=== PATIENT | female | born 1980 | race Caucasian/White ===

== ENCOUNTER 2016-12-08 04:28 | Emergency (ER) | payer OTHER ==
[~2016-12-08 04:28] MED LIST changes: -LEXA10TA PO; -MONUPAK PO; -TERC.4%V VAGINAL
[2016-12-08] MEDS ORDERED: MONUPAK PO (05:45)
--- NOTE | 2016-12-08 05:46 | PD ---
HPI Chief Complaint Cramping and spotting Date Seen: Dec 08, 2016 Time Seen: 05:30 Travel History International Travel<30 Days: No Contact w/Intl Traveler<30Days: No Known Affected Area: No History of Present Illness HPI This patient is 36-year-old white female at approximately 27 weeks' gestation with essentially no care only one visit with [facility] who didn't find out she was until a week and a half ago, she presents complaining of some cramping pain for over a month and spotting at times with some vulvar discomfort and swelling, heart rate tracing is reactive and she has no contractions, patient scheduled for an ultrasound on OB diagnostics in about 3 hours of but felt that she just got scared about her pains and the A.M. 4:30 This Morning Weeks Gestation: 27 Para: 1 : 2 History Obstetric History Obstetric History One vaginal delivery Social History Alcohol Use: No Tobacco Use: No Substance Abuse: No Allergies-Medications (Allergen,Severity, Reaction): Coded Allergies: No Known Allergies (Verified , 11/28/16) Home Meds Reported Medications Amphetamine-Dextroamphetamine (Adderall) 30 Mg Tab, 30 MG PO BID for Hyperactivity Control, #60 TAB 0 Refills Avoid late evening doses. Space doses at least 4 to 6 hours if more than once/day dosing. 11/28/16 Buprenorphine (Buprenorphine) 8 Mg Subl, 8 MG SL TID, TAB.SL 11/28/16 Alprazolam (Xanax) 2 Mg Tab, 2 MG PO Q8H Y for ANXIETY, TAB 0 Refills 11/28/16 Review of Systems General / Constitutional: No: Fever, Weight Gain, Chills, Other Eyes: No: Diploplia, Blurred Vision, Visual changes, Pain, Photophobia HENT: No: Headaches, Vertigo, Lightheadedness Cardiovascular: No: Irregular Rhythm, Chest Pain or Discomfort, Palpitations, Tachycardia, Syncope, Varicosities, Edema, Cyanosis Respiratory: No: Cough, Short of Breath, Other Gastrointestinal: Abdominal Pain, No: Nausea, Vomiting, Diarrhea Genitourinary: No: Decreased Urinary Output, Oliguria Musculoskeletal: No: Limited ROM, Weakness, Cramping, Edema, Pain Skin: No Rash, No Itching, No Dryness, No Lumps, No Change in Pigmentation, No Change in Nails, No Alopecia, No Lesions Neurologic: No: Weakness, Dizziness, Syncope, Focal Abnormalities, Coordination Problem, Headache, Slurred Speech, Seizures Psychiatric: No: Depression, Suicidal Ideations, Homicidal Ideation Endocrine: No: Heat Intolerance, Cold Intolerance, Polydipsia, Polyuria, Other Physical Exam Narrative GENERAL: Well-nourished, well-developed patient. SKIN: Warm and dry. HEAD: Normocephalic and atraumatic. EYES: No scleral icterus. No injection or drainage. ENT: No nasal drainage noted. Mucous membranes pink. Airway patent. NECK: Supple, trachea midline. No JVD. CARDIOVASCULAR: Regular rate and rhythm without murmurs, gallops, or rubs. RESPIRATORY: Breath sounds equal bilaterally. No accessory muscle use. BREASTS: Bilateral exam showed no masses , no retractions, no nipple discharge. ABDOMEN/GI: Abdomen soft, non-tender, bowel sounds present, no rebound, no guarding Gravid to [-27] weeks size Fundal Height: [-27] GENITOURINARY: External Genitalia: intact with some vulvar pink irritation likely yeast no blood on exam glove Cervix: [post-] Dilatation: [-0] Effacement: [-thick] Station: [-3] Membranes: [intact ] Uterine Contractions: [-0] FHT's: Category: [1-] Baseline: [-133] Reactive: [yes-] Variability: [-mod] Decels: [-0] EXTREMITIES: No cyanosis or edema. BACK: Nontender without obvious deformity. No CVA tenderness. NEUROLOGICAL: Awake and alert. Motor and sensory grossly within normal limits. Five out of 5 muscle strength in all muscle groups. Normal speech. Data Data Labs Urine dip shows trace leukocytes trace blood otherwise negative MDM Interpretation(s) 36-year-old white female at approximately 27 weeks with essentially no care who is scheduled for an ultrasound today at about 3 hours but presents with cramping and some minimal spotting this been going on for a month or more just at 4 AM discomfort also do come on in and check it out. No mayur blood or leakage of fluid. No contractions seen. Cervix closed long and high. heart rate tracing is reactive. By Manuel maneuvers and exam she's size equal dates approximately 27 weeks centimeters in size and of course the ultrasound being done a few hours will delineate the specifics on growth and an estimated gestational age Plan Plan the of the patient a prescription for monurol one-time dose for UTI, she was instructed to get Monistat one, or Vagistat 1 at [facility] and use that for yeast. She sees Tylenol as needed for discomfort heating pad on lower abdomen or hot bath for comfort bed rest helps as well. She is to increase her fluids for hydration purposes adequate follow-up with her ultrasound and her clinic Diagnosis Diagnosis: Primary Impression: Abdominal pain during in second trimester Additional Impression: UTI (urinary tract infection) in in second trimester Disposition: 01 DISCHARGE HOME Condition: Stable Scripts Fosfomycin Packet (Monurol Packet) 3 Gm Powderpack 3 GM PO ONCE for Urinary Symptom Managemen for 1 Day, GM Prov: Julián Palomo II, MD 12/08/16 Julián Palomo II, MD Dec 08, 2016 05:45
[2016-12-08] MEDS ORDERED: TERC.4%V VAGINAL (12:59)
== END 2016-12-08 06:05 | disposition home or self-care (01) ==
LOC: HOBED 04:28
DX: O23.42 Unspecified infection of urinary tract in pregnancy, second trimester (principal); Z3A.27 27 weeks gestation of pregnancy
CPT/HCPCS: 59025

== ENCOUNTER → 2016-12-08 | Outpatient (CLI) | payer OTHER ==
[~2016-12-08] MED LIST: ADDE30TA PO; BUPR8SUB SL; LEXA10TA PO; MONUPAK PO; TERC.4%V VAGINAL; XANA2TAB2 PO
== END ==
LOC: HPND 08:07
PROVIDERS: ATTEND Obstetrics & Gynecology
DX: O99.322 Drug use complicating pregnancy, second trimester (principal); O09.32 Supervision of pregnancy with insufficient antenatal care, second trimester; O99.282 Endocrine, nutritional and metabolic diseases complicating pregnancy, second trimester
CPT/HCPCS: 76805

== ENCOUNTER 2016-12-10 02:44 | Emergency (ER) | payer OTHER ==
[~2016-12-10 02:44] MED LIST changes: +MONUPAK PO; +TERC.4%V VAGINAL
[2016-12-10] MEDS ORDERED: LEXA10TA PO (03:24)
--- NOTE | 2016-12-10 03:36 | PD ---
HPI Chief Complaint Concern for withdrawal Date Seen: Dec 10, 2016 Time Seen: 03:24 Travel History International Travel<30 Days: No Contact w/Intl Traveler<30Days: No Known Affected Area: No History of Present Illness HPI 36-year-old 2 para 1 at 27-3/7 weeks gestation with an EDC of February 28. She is currently enrolled with care [facility] women and is on Subutex 8 mg 3 times a day and Zantac 2 mg 3 times a day. She states that she is no longer taking her Adderall. She is up-to-date on her Subutex dosing. She has not taken Xanax since morning. She was also trying to dose reduce on Lexapro which was prescribed 20 mg that she had reduced to 5 mg but feels like this is making her anxiety worse at this dose. History Past Medical History Narrative Medical Polysubstance abuse Obstetric History Obstetric History One prior term vaginal delivery -this child has autism Past Surgical History Narrative Surgical None Family History Family History: Negative Social History Alcohol Use: No Tobacco Use: No Substance Abuse: Yes Allergies-Medications (Allergen,Severity, Reaction): Coded Allergies: No Known Allergies (Verified , 11/28/16) Home Meds Active Scripts Terconazole Vaginal Cream (Terazol 7 Vaginal Cream) 0.4 % Cream, 1 APPL VAGINAL HS for Fungal Infection, #45 GM 0 Refills 1 applicatorful intravaginally x 7 nights Prov:Chelsie Oswald 12/08/16 Fosfomycin Packet (Monurol Packet) 3 Gm Powderpack, 3 GM PO ONCE for Urinary Symptom Managemen for 1 Day, GM Prov:Julián Palomo II, MD 12/08/16 Reported Medications Amphetamine-Dextroamphetamine (Adderall) 30 Mg Tab, 30 MG PO BID for Hyperactivity Control, #60 TAB 0 Refills Avoid late evening doses. Space doses at least 4 to 6 hours if more than once/day dosing. 11/28/16 Buprenorphine (Buprenorphine) 8 Mg Subl, 8 MG SL TID, TAB.SL 11/28/16 Alprazolam (Xanax) 2 Mg Tab, 2 MG PO Q8H Y for ANXIETY, TAB 0 Refills 11/28/16 Review of Systems Except as stated in HPI: all other systems reviewed are Neg Physical Exam Narrative GENERAL: Well-nourished, well-developed patient. SKIN: Warm and dry. HEAD: Normocephalic and atraumatic. EYES: No scleral icterus. No injection or drainage. ENT: No nasal drainage noted. Mucous membranes pink. Airway patent. NECK: Supple, trachea midline. No JVD. CARDIOVASCULAR: Regular rate and rhythm without murmurs, gallops, or rubs. RESPIRATORY: Breath sounds equal bilaterally. No accessory muscle use. ABDOMEN/GI: Abdomen soft, non-tender, bowel sounds present, no rebound, no guarding Gravid to [-] weeks size Fundal Height: [-] FHT's: Category: [1-] Baseline: [-] Reactive: [yes-] Variability: [-] Decels: [-] EXTREMITIES: No cyanosis or edema. BACK: Nontender without obvious deformity. No CVA tenderness. NEUROLOGICAL: Awake and alert. Motor and sensory grossly within normal limits. Five out of 5 muscle strength in all muscle groups. Normal speech. Data Data Vital Signs Reviewed: Yes MDM Medical Record Reviewed: Yes Narrative Course / MDM Assessment: 27+ week intrauterine with polysubstance abuse Plan: I discussed with the patient reinitiating her Lexapro at 10 mg. She will follow up in the clinic Monday by phone to reestablish the point that she missed on 4 her 28 week labs. Diagnosis Diagnosis: Primary Impression: 27 weeks gestation of Additional Impression: Medication refill Disposition: 01 DISCHARGE HOME Condition: Good Scripts Escitalopram (Lexapro) 10 Mg Tab 10 MG PO DAILY for Control Depression, #30 TAB 0 Refills Prov: Anthony Parks MD 12/10/16 Anthony Parks MD Dec 10, 2016 03:36
== END 2016-12-10 03:52 | disposition home or self-care (01) ==
LOC: HOBED 02:44
DX: O99.322 Drug use complicating pregnancy, second trimester (principal); F19.10 Other psychoactive substance abuse, uncomplicated; Z3A.27 27 weeks gestation of pregnancy
CPT/HCPCS: 99283

== ENCOUNTER 2017-01-09 01:42 | Emergency (ER) | payer OTHER ==
[~2017-01-09 01:42] MED LIST changes: +CELE40TA PO; +KLON2TAB PO; -MONUPAK PO
[2017-01-09 02:11] VITALS: BP 106/64; PULSE 95; RESP 20; O2SAT 98
--- NOTE | 2017-01-09 02:19 | PD ---
HPI Chief Complaint: Related Problem Time Seen by Provider: 02:01 Travel History International Travel<30 days: No Contact w/Intl Traveler<30days: No Traveled to known affect area: No History of Present Illness HPI 36-year-old female patient with history of previous substance abuse, previous with delivery at 34 weeks, presents to the ER today 33 weeks , states that she has noticed increased wetness in her panty liners and is worried that she may be losing amniotic fluid. She states that she has had this problem in her previous . She was last evaluated by ENGINEERING ADMINISTRATOR last week and had normal heart tones. She states that she also has not felt the baby moving in the past few days. She denies any bleeding, abdominal pains currently, or any other symptoms. Modifying Factors: None Associated Signs & Symptoms: 33 weeks , increased vaginal discharge, possible amniotic fluid Risk Factors: Previous delivery with low amniotic fluid levels PFSH Past Medical History Anxiety: Yes Depression: Yes Diminished Hearing: No Neurologic: Yes (CLOSED HEAD INJURY S/P SEIZURE 5 MO AGO.) Immunizations Current: Yes Seizures: Yes Past Surgical History Section: Yes (X1) Ear Surgery: No Oral Surgery: Yes (wisdom teeth removed) Social History Alcohol Use: No Tobacco Use: No Substance Use: No (denies) Allergies-Medications (Allergen,Severity, Reaction): Coded Allergies: No Known Allergies (Verified Adverse Reaction, Unknown, 12/29/16) Reported Meds & Prescriptions Reported Meds & Active Scripts Active Terazol 7 Vaginal Cream (Terconazole Vaginal Cream) 0.4 % Cream 1 Appl VAGINAL HS 1 applicatorful intravaginally x 7 nights Reported Celexa (Citalopram Hydrobromide) 40 Mg Tab 40 Mg PO DAILY Klonopin (Clonazepam) 2 Mg Tab 2 Mg PO DAILY Adderall (Amphetamine-Dextroamphetamine) 30 Mg Tab 30 Mg PO BID Avoid late evening doses. Space doses at least 4 to 6 hours if more than once/day dosing. Buprenorphine (Buprenorphine HCl) 8 Mg Subl 8 Mg SL TID Xanax (Alprazolam) 2 Mg Tab 2 Mg PO Q8H PRN Review of Systems Except as stated in HPI: all other systems reviewed are Neg Physical Exam Narrative GENERAL: Well-developed middle age female patient currently in mild distress. Awake and oriented 3. SKIN: Focused skin assessment warm/dry. HEAD: Atraumatic. Normocephalic. EYES: Pupils equal and round. No scleral icterus. No injection or drainage. ENT: No nasal bleeding or discharge. Mucous membranes pink and moist. NECK: Trachea midline. No JVD. CARDIOVASCULAR: Regular rate and rhythm. No murmur appreciated. RESPIRATORY: No accessory muscle use. Clear to auscultation. Breath sounds equal bilaterally. GASTROINTESTINAL: Abdomen soft, gravid, uterine fundus above the umbilicus, non- tender, nondistended. Hepatic and splenic margins not palpable. GENITOURINARY: Normal external genitalia without lesions or erythema. Vaginal vault without blood, noted whitish drainage. Cervical os was closed without drainage. No cervical motion tenderness. Uterus nontender and appropriately enlarged. Bilateral adnexa nontender without masses. MUSCULOSKELETAL: No obvious deformities. No clubbing. No cyanosis. No edema. NEUROLOGICAL: Awake and alert. No obvious cranial nerve deficits. Motor grossly within normal limits. Normal speech. PSYCHIATRIC: Appropriate mood and affect; insight and judgment normal. Data Data Orders Orders Urinalysis - C+S If Indicated (01/09/17 02:01) [facility] Medical Decision Making Medical Screen Exam Complete: Yes Emergency Medical Condition: Yes Medical Record Reviewed: Yes Differential Diagnosis 33 weeks , increased discharge: Amniotic fluid leakage versus normal related vaginal discharge Narrative Course Abdomen is benign, and on exam I see whitish discharge, no bleeding, cervical os is closed. Transabdominal ultrasound was done by me which shows positive heart tones. At this point, case was discussed with Dr. Brian in the OB ER, and she states that the patient can come by private vehicle and be evaluated in the OB ER at this time. I have told the patient regarding the discussion with Dr. Brian and have recommended that she goes directly from here to the OB ER at [facility] for further evaluation since I cannot rule out that this is not amniotic fluid. An amniotic fluid leakage that is undetected, can cause further issues with and morbidity. Patient states understanding, and states she will go to the main ER. I have reiterated to her that she should not wait until morning. She states understanding. Diagnosis Primary Impression: Vaginal discharge during in third trimester Additional Instructions: Go directly to the OB ER at [facility] now, Dr. Brian will be expecting you. Disposition: 70 TRANSFER TO OTHER FACILITY (to go directly to OB ER at [facility]) Condition: Stable Goldy Weiss MD Jan 09, 2017 02:19
[2017-01-09 02:22] LABS: GLUCOSE,URINE NEG (NEG); KETONE, URINE NEG (NEG); NITRITE,URINE NEG (NEG); PH, URINE 6.5 (5.0-8.5)
[2017-01-09] MEDS ORDERED: ADDE20 PO (02:28)
[2017-01-09 02:34] LABS: BLOOD, URINE TRACE (NEG)
[2017-01-09 02:35] LABS: URINE COLOR YELLOW (YELLW/STRAW)
[2017-01-09 02:36] LABS: COMMENT (UR) CULT NOT INDICATED; CULTURE IF INDICATED CULT NOT INDICATED; RBC, URINE 0-3 /hpf (0-3); WBC, URINE 0-2 /hpf (0-5)
[2017-01-09 02:40] VITALS: BP 110/68
== END 2017-01-09 02:31 | disposition short-term general hospital (02) ==
LOC: PHED 01:42
DX: O26.93 Pregnancy related conditions, unspecified, third trimester (principal); Z3A.34 34 weeks gestation of pregnancy
CPT/HCPCS: 81001; 99285

== ENCOUNTER 2017-01-09 03:53 | Emergency (ER) | payer OTHER ==
[~2017-01-09 03:53] MED LIST changes: +ADDE20 PO
--- NOTE | 2017-01-09 04:59 | PD ---
HPI Chief Complaint Watery vaginal discharge with decreased movement Date Seen: Jan 09, 2017 Time Seen: 04:53 Travel History International Travel<30 Days: No Contact w/Intl Traveler<30Days: No Known Affected Area: No History of Present Illness HPI 36-year-old who is at 32 weeks 6 days comes in complaining of decreased movement for the past 2-3 hours and she's noticed an increase in watery vaginal discharge and she just won't make sure that she was not ruptured. Patient sees care for women and denies any complications although she has had sparse care with only a single visit thus far. Patient is also on Subutex Xanax Klonopin and Lexapro with a history of section Weeks Gestation: 32 (32.6) Para: 1 : 2 History Past Medical History Medical History: Denies Significant Hx Obstetric History Obstetric History section Past Surgical History Narrative Surgical section and wisdom teeth removal Family History Family History: Negative Social History Alcohol Use: No Tobacco Use: Yes Substance Abuse: No Allergies-Medications (Allergen,Severity, Reaction): Coded Allergies: No Known Allergies (Verified Adverse Reaction, Unknown, 12/29/16) Home Meds Reported Medications Amphetamine-Dextroamphetamine (Adderall) 20 Mg Tab, 20 MG PO DAILY for Hyperactivity Control, #30 TAB 0 Refills Avoid late evening doses. Space doses at least 4 to 6 hours if more than once/day dosing. 01/09/17 Citalopram (Celexa) 40 Mg Tab, 40 MG PO DAILY for Control Depression, #30 TAB 0 Refills 12/29/16 Clonazepam (Klonopin) 2 Mg Tab, 2 MG PO DAILY, #60 TAB 0 Refills 12/29/16 Buprenorphine (Buprenorphine) 8 Mg Subl, 8 MG SL TID, TAB.SL 11/28/16 Discontinued Reported Medications Amphetamine-Dextroamphetamine (Adderall) 30 Mg Tab, 30 MG PO BID for Hyperactivity Control, #60 TAB 0 Refills Avoid late evening doses. Space doses at least 4 to 6 hours if more than once/day dosing. 11/28/16 Alprazolam (Xanax) 2 Mg Tab, 2 MG PO Q8H Y for ANXIETY, TAB 0 Refills 11/28/16 Discontinued Scripts Terconazole Vaginal Cream (Terazol 7 Vaginal Cream) 0.4 % Cream, 1 APPL VAGINAL HS for Fungal Infection, #45 GM 0 Refills 1 applicatorful intravaginally x 7 nights Prov:Chelsie Oswald 12/08/16 Review of Systems Except as stated in HPI: all other systems reviewed are Neg Physical Exam Narrative GENERAL: Well-nourished, well-developed patient. SKIN: Warm and dry. HEAD: Normocephalic and atraumatic. EYES: No scleral icterus. No injection or drainage. ENT: No nasal drainage noted. Mucous membranes pink. Airway patent. NECK: Supple, trachea midline. No JVD. CARDIOVASCULAR: Regular rate and rhythm without murmurs, gallops, or rubs. RESPIRATORY: Breath sounds equal bilaterally. No accessory muscle use. ABDOMEN/GI: Abdomen soft, non-tender, bowel sounds present, no rebound, no guarding Gravid to [30-] weeks size Fundal Height: [-] GENITOURINARY: Amnisure is negative with no obvious amniotic fluid per vagina External Genitalia: intact and normal in appearance BUS glands: [-] Cervix: [-] Dilatation: [-] Effacement: [-] Station: [-] Presentation: [-] Membranes: [intact or ruptured] Uterine Contractions: [-] FHT's: Category: [1-] Baseline: [140-] Reactive: [-Moderate] Variability: [-Moderate] Decels: [-Absent] EXTREMITIES: No cyanosis or edema. BACK: Nontender without obvious deformity. No CVA tenderness. NEUROLOGICAL: Awake and alert. Motor and sensory grossly within normal limits. Five out of 5 muscle strength in all muscle groups. Normal speech. Data Data Vital Signs Reviewed: Yes [facility] Medical Record Reviewed: Yes Plan 36-year-old who is at 32 weeks 6 days with intact amniotic membranes and a negative amnisure Decreased movement seems to have resolved since patient arrived with a category 1 heart rate tracing, no contractions are noted History of a section Multiple medications noted Diagnosis Diagnosis: Primary Impression: 32 weeks gestation of Additional Impressions: Previous section complicating , antepartum condition or complication Decreased movement affecting management of in third trimester Intact amniotic membranes during in third trimester Disposition: 01 DISCHARGE HOME Fior Brian MD Jan 09, 2017 04:59
== END 2017-01-09 11:53 | disposition home or self-care (01) ==
LOC: HOBED 03:53
DX: O36.8130 Decreased fetal movements, third trimester, not applicable or unspecified (principal); Z3A.32 32 weeks gestation of pregnancy; Z79.899 Other long term (current) drug therapy
CPT/HCPCS: 59025; 84112

== ENCOUNTER → 2017-01-11 | Outpatient (CLI) | payer OTHER ==
[~2017-01-11] MED LIST changes: -ADDE30TA PO; -TERC.4%V VAGINAL; -XANA2TAB2 PO
== END ==
LOC: HPND 12:50
PROVIDERS: ATTEND Obstetrics & Gynecology
DX: O09.523 Supervision of elderly multigravida, third trimester (principal); O99.323 Drug use complicating pregnancy, third trimester; O99.333 Smoking (tobacco) complicating pregnancy, third trimester; O36.63X0 Maternal care for excessive fetal growth, third trimester, not applicable or unspecified
CPT/HCPCS: 76811; 76825; 76827; 93325

== ENCOUNTER 2017-02-09 01:35 | Emergency (ER) | payer OTHER ==
[~2017-02-09] VITALS: Ht 162.6 cm; Wt 70.3 kg
[~2017-02-09 01:35] MED LIST changes: +BUPR100CR PO
[2017-02-09] MEDS ORDERED: PREN29TA PO (02:01)
--- NOTE | 2017-02-09 02:21 | PD ---
HPI Chief Complaint Contractions Date Seen: Feb 09, 2017 Time Seen: 02:16 Travel History International Travel<30 Days: No Contact w/Intl Traveler<30Days: No Known Affected Area: No History of Present Illness HPI 36 yo at 35.6 weeks gestation who c/o abdominal pain earlier today but felt like contractions. This is only happened 3 times in the past 2 hours. She was concerned as she ran out of Klonopin and her last dose was yesterday. No other complaints at this time with good movement, denies vaginal bleeding or rupture membranes patient sees care for women and had an appointment this week with another appointment in 5 days. Patient arrived via E VAC Weeks Gestation: 35 (35.6) Para: 1 : 2 History Past Medical History Narrative Medical Anxiety Depression Chronic Subutex use Obstetric History Obstetric History section 7 years ago this child was diagnosis autistic Past Surgical History Narrative Surgical section Family History Family History: Negative Social History Alcohol Use: No Tobacco Use: No Substance Abuse: Yes Allergies-Medications (Allergen,Severity, Reaction): Coded Allergies: No Known Allergies (Verified Adverse Reaction, Unknown, 02/09/17) Home Meds Reported Medications Vit-Iron Carbonyl ( Plus Iron 29-1 mg) 29 Mg Iron-1 Mg Tab, 1 TAB PO DAILY for Nutritional Supplement, #30 TAB 0 Refills 02/09/17 Amphetamine-Dextroamphetamine (Adderall) 20 Mg Tab, 20 MG PO DAILY for Hyperactivity Control, #30 TAB 0 Refills Avoid late evening doses. Space doses at least 4 to 6 hours if more than once/day dosing. 01/09/17 Clonazepam (Klonopin) 2 Mg Tab, 2 MG PO DAILY, #60 TAB 0 Refills 12/29/16 Buprenorphine (Buprenorphine) 8 Mg Subl, 8 MG SL TID, TAB.SL 11/28/16 Discontinued Reported Medications Citalopram (Celexa) 40 Mg Tab, 40 MG PO DAILY for Control Depression, #30 TAB 0 Refills 12/29/16 Discontinued Scripts Bupropion HCl ER 12 HR (Wellbutrin SR 12 HR) 100 Mg Tab, 100 MG PO Q12HR for Control Depression, #60 TAB 1 Refill Prov:Jaswant Navarro MD 01/31/17 Review of Systems Except as stated in HPI: all other systems reviewed are Neg Physical Exam Narrative GENERAL: Well-nourished, well-developed patient. SKIN: Warm and dry. HEAD: Normocephalic and atraumatic. EYES: No scleral icterus. No injection or drainage. ENT: No nasal drainage noted. Mucous membranes pink. Airway patent. NECK: Supple, trachea midline. No JVD. CARDIOVASCULAR: Regular rate and rhythm without murmurs, gallops, or rubs. RESPIRATORY: Breath sounds equal bilaterally. No accessory muscle use. ABDOMEN/GI: Abdomen soft, non-tender, bowel sounds present, no rebound, no guarding Gravid to [36-] weeks size Fundal Height: [-] GENITOURINARY: External Genitalia: intact and normal in appearance BUS glands: [Normal-] Cervix: [-Posterior] Dilatation: [Closed-] Effacement: [-50] Station: [--3] Presentation: [Vertex-] Membranes: [intact] Uterine Contractions: [-Absent, maybe 1 contraction since arrival versus patient movement] FHT's: Category: [1-] Baseline: [-140] Reactive: [-Moderate] Variability: [-Moderate] Decels: [-Absent] EXTREMITIES: No cyanosis or edema. BACK: Nontender without obvious deformity. No CVA tenderness. NEUROLOGICAL: Awake and alert. Motor and sensory grossly within normal limits. Five out of 5 muscle strength in all muscle groups. Normal speech. Data Data Vital Signs Reviewed: Yes [facility] Medical Record Reviewed: Yes Plan 36-year-old previous section here for mild abdominal pain that has mostly resolved but arrived via E V[facility] Patient will discuss with her costume director and the necessity for continued use of Klonopin Chronic Subutex use Advanced maternal age Diagnosis Diagnosis: Primary Impression: 35 weeks gestation of Additional Impressions: Previous section complicating , antepartum condition or complication Advanced maternal age in multigravida complicated by subutex maintenance, antepartum Disposition: DISCHARGE HOME Fior Brian MD Feb 09, 2017 02:21
== END 2017-02-09 02:29 | disposition home or self-care (01) ==
LOC: HOBED 01:35
DX: O09.523 Supervision of elderly multigravida, third trimester (principal); O26.893 Other specified pregnancy related conditions, third trimester; R10.9 Unspecified abdominal pain; O99.343 Other mental disorders complicating pregnancy, third trimester; F41.9 Anxiety disorder, unspecified; F32.9 Major depressive disorder, single episode, unspecified; Z3A.35 35 weeks gestation of pregnancy; Z79.899 Other long term (current) drug therapy
CPT/HCPCS: 59025

== ENCOUNTER 2017-03-02 17:07 | Emergency (ER) | payer OTHER ==
[~2017-03-02 17:07] MED LIST changes: -BUPR100CR PO; -CELE40TA PO; +PREN29TA PO
--- NOTE | 2017-03-02 18:33 | PD ---
HPI Chief Complaint cramps/contractions Date Seen: Mar 02, 2017 Travel History International Travel<30 Days: No Contact w/Intl Traveler<30Days: No History of Present Illness HPI Ms. Pickering is a 36 yo at 38 6/7 weeks (MAYNOR 03/10/2017) who presents with multiple complaints of cramps, contractions, mucus plug, nausea, and dizziness. Ms. Pickering states that last night she began having abdominal cramping/ contractions. Patient also reports having lost her mucus plug at that time and having bloody mucus since (slight). Patient also reports recent nausea and dizziness in association with other symptoms. Patient reports normal movement. Patient does not report mayur vaginal bleeding. No chest pain, shortness of breath, vomiting, abnormal urination, or abnormal bowel movements. On repeat questioning, patient requests to stay overnight due to anxiety regarding a scheduled CS tomorrow (planned at 39 weeks GA as a repeat CS - prior was CS for breech presentation; patient also reports concern about safety/low DAVID and abruption during last ). Patient has had benign course. She last had US 02/28/2016; she is scheduled to get weekly NST's due to polysubstance abuse. Patient reports taking tobacco (<1/2 PPD, Subutex 8mg TID-> 8mg daily, Klonopin 2mg TID and Adderall use during (occasional). Patient used to take regular Adderall and Lexapro earlier in but these were stopped at ~25 weeks when she learned she was . Patient sees Dr. Navarro for care. Weeks Gestation: 38 Para: 1 : 2 History Past Medical History Narrative Medical Advanced maternal age Tobacco abuse multiple substances abused Obstetric History Obstetric History CS for breech presentation; complicated by abruption Past Surgical History Narrative Surgical CS x1 Surgical History: No Previous Surgery Family History Narrative Family History Child with autism Social History Narrative Social History patient smokes <1/2 PPD Patient uses Subutex, Klonopin, Lexapro, Adderall Alcohol Use: No Tobacco Use: Yes Substance Abuse: Yes Allergies-Medications (Allergen,Severity, Reaction): Coded Allergies: No Known Allergies (Verified Adverse Reaction, Unknown, 02/16/17) Home Meds Reported Medications Vit-Iron Carbonyl ( Plus Iron 29-1 mg) 29 Mg Iron-1 Mg Tab, 1 TAB PO DAILY for Nutritional Supplement, #30 TAB 0 Refills 02/09/17 Amphetamine-Dextroamphetamine (Adderall) 20 Mg Tab, 20 MG PO DAILY for Hyperactivity Control, #30 TAB 0 Refills Avoid late evening doses. Space doses at least 4 to 6 hours if more than once/day dosing. 01/09/17 Clonazepam (Klonopin) 2 Mg Tab, 2 MG PO DAILY, #60 TAB 0 Refills 12/29/16 Buprenorphine (Buprenorphine) 8 Mg Subl, 8 MG SL TID, TAB.SL 11/28/16 Review of Systems General / Constitutional: No: Fever, Chills Eyes: No: Blurred Vision HENT: No: Headaches Cardiovascular: No: Chest Pain or Discomfort Respiratory: No: Short of Breath Gastrointestinal: Abdominal Pain, No: Nausea, Vomiting Genitourinary: No: Urgency, Dysuria Skin: No Rash, No Itching Neurologic: No: Weakness Psychiatric: No: Anxiety, Depression Physical Exam VS- T 98.7F BP 122/74 HR 107 RR 18 Narrative GENERAL: Well-nourished, well-developed patient. SKIN: Warm and dry. HEAD: Normocephalic and atraumatic. EYES: No scleral icterus. No injection or drainage. CARDIOVASCULAR: Regular rate and rhythm without murmurs. Normal perfusion RESPIRATORY: CTAB; normal rate ABDOMEN/GI: Abdomen soft, non-tender, bowel sounds present, no rebound, no guarding Gravid EXTREMITIES: No cyanosis or edema. NEUROLOGICAL: Awake and alert. Motor and sensory function grossly within normal limits. GENITOURINARY: External Genitalia: intact and normal in appearance Cervix: Dilatation: 0-1 cm Effacement: 70% Station: -2 Presentation: Vertex Membranes: Intact Uterine Contractions: mild, irregular FHT's: Category: 1 Baseline: 120 Reactive: Y Variability: Moderate Decels: None Data Data Orders Orders Meperidine Inj (Demerol Inj) (03/02/17 18:15) Promethazine Inj (Phenergan Inj) (03/02/17 18:15) MDM Medical Record Reviewed: Yes Narrative Course / MDM 36 yo at 38 6/7 weeks (MAYNOR 03/10/2017) who presents with multiple complaints of cramps, contractions, mucus plug, nausea, and dizziness. -Cat 1 rhythm -Cervix 0-1/70%/-2 -Uterine irritability on CTG -Maternal anxiety -Planned CS tomorrow at 39 weeks GA Assessment/Plan: Suspect that patient is having early labor pains/uterine irritability which is contributing to her chronic anxiety. Patient reassured regarding her fetus' well -being and that she was not in active labor. Patient given Demerol and Phenergan for pain control and discharged home in the company of her friend with instruction and prepare for scheduled repeat - CS tomorrow. Patient will return to OB ED with additional concerns or worsening pain; she was counselled regarding labor and returning to OB ED if needed due to new symptoms or worsening pain. Diagnosis Diagnosis: Primary Impression: Labor, false (Blaine-Trimble), antepartum Additional Impression: 38 weeks gestation of Disposition: 01 DISCHARGE HOME Condition: Stable Patient Instructions: Abdominal Pain in (ED), Movement (ED), General Instructions, Having Your Baby: The Labor Process (GEN) Uvaldo Garza MD, R3 Mar 02, 2017 18:33
[2017-03-02] MEDS ORDERED: MEPERIDINE HCL 50 MG/ML VIAL IM ONE (18:45)
[2017-03-02] MEDS ORDERED: PROMETHAZINE INJ 25 MG/ML VIAL IM ONE (18:45)
== END 2017-03-02 19:19 | disposition home or self-care (01) ==
LOC: HOBED 17:07
DX: O47.1 False labor at or after 37 completed weeks of gestation (principal); O99.333 Smoking (tobacco) complicating pregnancy, third trimester; F17.210 Nicotine dependence, cigarettes, uncomplicated; O99.323 Drug use complicating pregnancy, third trimester; Z3A.38 38 weeks gestation of pregnancy; Z79.899 Other long term (current) drug therapy
CPT/HCPCS: 59025; 96372; J2175; J2550

== ENCOUNTER 2017-03-03 10:24 | Inpatient (IN) | payer OTHER ==
[~2017-03-03] VITALS: Ht 162.6 cm; Wt 73.0 kg
--- NOTE | 2017-03-03 11:15 | HHI.HP ---
HPI Chief Complaint Repeat CS Date Seen: Mar 03, 2017 Travel History International Travel<30 Days: No Contact w/Intl Traveler<30Days: No History of Present Illness HPI Ms. Pickering is a 36 yo at 39 weeks (MAYNOR 03/10/2017) who presents for planned repeat CS. Patient was last seen by myself and Dr. Palomo 03/02 for complaints of abdominal pain concerning for contractions and recent loss of mucus plug; she was having irregular contractions and her cervix was 0-1cm; Cat 1 tracing on EFM. Patient was sent home after Demerol given. Ms. Pickering reports that she is doing ok at this time; she reports some anxiety regarding her upcoming CS. Patient reports increasing abdominal pain overnight; she continues to feel this every few minutes. Patient reports continued bloody mucus since loss of mucus plug several days prior. Normal movement. Patient does not report mayur vaginal bleeding. Patient reports some pain with urination. Patient does not report chest pain, shortness of breath, nausea/ vomiting, or abnormal bowel movements. Patient reports history with multiple substances: tobacco (<1/2 PPD, Subutex 8mg TID-> 8mg daily, Klonopin 2mg TID and Adderall use during (occasional). Patient last had US 02/28/2016; she is scheduled to get weekly NST' s due to polysubstance abuse. Patient has not yet obtained labs; CBC wnl. Patient requests anxiety control and subsequent Psychiatry evaluation after delivery due to mood disorder. Patient reports distant history of opiate dependence but that she is agreeable to taking opiate medications post- operatively with plan to transition back to Subutex; patient gets Subutex from physician in [place] (Dr. Gray). Weeks Gestation: 39 Para: 1 : 2 History Past Medical History Narrative Medical Advanced maternal age Tobacco abuse on subutex Anxiety/depression Obstetric History Obstetric History Prior CS for breech presentation; patient also reports concern about safety/low DAVID and abruption during last Past Surgical History Narrative Surgical CS x1 [place] teeth removal Family History Narrative Family History T2DM Unspecified cancer Son with autism Social History Narrative Social History <1/2 PPD tobacco Subutex Klonopin occasional Adderall Lexapro in early Alcohol Use: No Substance Abuse: No Allergies-Medications (Allergen,Severity, Reaction): Coded Allergies: No Known Allergies (Verified Adverse Reaction, Unknown, 03/03/17) Home Meds Reported Medications Vit-Iron Carbonyl ( Plus Iron 29-1 mg) 29 Mg Iron-1 Mg Tab, 1 TAB PO DAILY for Nutritional Supplement, #30 TAB 0 Refills 02/09/17 Amphetamine-Dextroamphetamine (Adderall) 20 Mg Tab, 20 MG PO DAILY for Hyperactivity Control, #30 TAB 0 Refills Avoid late evening doses. Space doses at least 4 to 6 hours if more than once/day dosing. 01/09/17 Clonazepam (Klonopin) 2 Mg Tab, 2 MG PO DAILY, #60 TAB 0 Refills 12/29/16 Buprenorphine (Buprenorphine) 8 Mg Subl, 8 MG SL TID, TAB.SL 11/28/16 Review of Systems General / Constitutional: No: Fever Eyes: No: Blurred Vision HENT: No: Headaches Cardiovascular: No: Chest Pain or Discomfort Respiratory: No: Short of Breath Gastrointestinal: Abdominal Pain, No: Nausea, Vomiting Genitourinary: Dysuria (occasional), No: Urgency, Frequency Skin: No Rash Neurologic: No: Weakness Psychiatric: No: Anxiety, Depression Physical Exam BP 127/76 HR 95 RR 18 Narrative GENERAL: Well-nourished, well-developed patient. SKIN: Warm and dry. HEAD: Normocephalic and atraumatic. EYES: No scleral icterus. No injection or drainage. NECK: No thyromegaly or lymphadenopathy CARDIOVASCULAR: Regular rate and rhythm without murmurs. Normal perfusion RESPIRATORY: CTAB; normal rate ABDOMEN/GI: Abdomen soft, non-tender, bowel sounds present, no rebound, no guarding. Gravid EXTREMITIES: No cyanosis or edema. NEUROLOGICAL: Awake and alert. Motor and sensory function grossly within normal limits. FHT's: Category: 1 Baseline: 130 Reactive: Y Variability: Moderate Decels: None GENITOURINARY: Per last check 03/02, cervix 0-1cm dilated Presentation: Vertex Membranes: Intact Uterine Contractions: occasional, ~>5 min intervals between Caprini VTE Risk Assessment Caprini VTE Risk Assessment: No/Low Risk (score <= 1) Caprini Risk Assessment Model Point Value = 1 Point Value = 2 Point Value = 3 Point Value = 5 Age 41-60 Minor surgery BMI > 25 kg/m2 Swollen legs Varicose veins or History of unexplained or recurrent spontaneous Oral contraceptives or hormone replacement Sepsis (< 1 month) Serious lung disease, including pneumonia (< 1 month) Abnormal pulmonary function Acute myocardial infarction Congestive heart failure (< 1 month) History of inflammatory bowel disease Medical patient at bed rest Age 61-74 Arthroscopic surgery Major open surgery (> 45 min) Laparoscopic surgery (> 45 min) Malignancy Confined to bed (> 72 hours) Immobilizing plaster cast Central venous access Age >= 75 History of VTE Family history of VTE Factor V Leiden Prothrombin [id number] Lupus anticoagulant Anticardiolipin antibodies Elevated serum homocysteine Heparin-induced thrombocytopenia Other congenital or acquired thrombophilia Stroke (< 1 month) Elective arthroplasty Hip, pelvis, or leg fracture Acute spinal cord injury (< 1 month) Prophylaxis Regimen Total Risk Factor Score Risk Level Prophylaxis Regimen 0-1 Low Early ambulation 2 Moderate Order ONE of the following: *Sequential Compression Device (SCD) *Heparin 5000 units SQ BID 3-4 Higher Order ONE of the following medications: *Heparin 5000 units SQ TID *Enoxaparin/Lovenox 40 mg SQ daily (WT < 150 kg, CrCl > 30 mL/min) *Enoxaparin/Lovenox 30 mg SQ daily (WT < 150 kg, CrCl > 10-29 mL/min) *Enoxaparin/Lovenox 30 mg SQ BID (WT < 150 kg, CrCl > 30 mL/min) AND/OR *Sequential Compression Device (SCD) 5 or more Highest Order ONE of the following medications: *Heparin 5000 units SQ TID (Preferred with Epidurals) *Enoxaparin/Lovenox 40 mg SQ daily (WT < 150 kg, CrCl > 30 mL/min) *Enoxaparin/Lovenox 30 mg SQ daily (WT < 150 kg, CrCl > 10-29 mL/min) *Enoxaparin/Lovenox 30 mg SQ BID (WT < 150 kg, CrCl > 30 mL/min) AND *Sequential Compression Device (SCD) Data Data Vital Signs Reviewed: Yes Assessment/Plan Problem List: (1) 39 weeks gestation of ICD Codes: Z3A.39 - 39 weeks gestation of (2) Previous section ICD Codes: Z98.891 - History of uterine scar from previous surgery Assessment and Plan 36 yo at 39 weeks (MAYNOR 03/10/2017) who presents for repeat CS -Cat 1 rhythm -Occasional contractions on CTG -Maternal anxiety on Klonopin -Maternal Subutex usage (8mg daily recently) -Maternal tobacco abuse -No labs Plan: -Will draw remainder of panel -Will obtain Type/screen, CBC, UA -Will plan for repeat CS -Discussed anxiety management and pain control -Will plan for PRN anxiolytic and Psychiatry consultation to manage depression/anxiety medications Uvaldo Garza MD, R3 Mar 03, 2017 11:15
[2017-03-03] MEDS ORDERED: LACTATED RINGER'S 1000 ML INJ 1,000 ML IV ONE ×2 (11:24→12:00)
[2017-03-03] MEDS ORDERED: ACETAMINOPHEN 1000 MG/100 ML 100 ML IV ONE (11:38)
[2017-03-03] MEDS ORDERED: MORPHINE SULFATE PF 5 MG/10 ML VIAL ONE (11:38)
[2017-03-03] MEDS ORDERED: LACTATED RINGER'S 1000 ML INJ 1,000 ML IV SCH ×2 (11:54→21:40)
[2017-03-03 11:55] LABS: BACTERIA, URINE RARE /hpf; BILIRUBIN, URINE NEG (NEG); BLOOD, URINE NEG (NEG); GLUCOSE,URINE NEG (NEG); KETONE, URINE NEG (NEG); NITRITE,URINE NEG (NEG); SQUAMOUS EPITHELIAL CELL URINE 2 /hpf (0-5); TRANSITIONAL EPI CELLS, URINE <1 /hpf; URINE COLOR YELLOW (YELLW/STRAW); URINE LEUKOCYTE ESTERASE NEG (NEG)
[2017-03-03] MEDS ORDERED: LIDOCAINE HCL 1% PF 5 ML SYRINGE OTHER ONE (12:00)
[2017-03-03] MEDS ORDERED: ONDANSETRON HCL 4 MG/2 ML VIAL IV ONE (12:00)
[2017-03-03] MEDS ORDERED: OXYTOCIN 10 UNIT/ML AMP IV ONE (12:00)
[2017-03-03 12:12] LABS: AUTOMATED NEUTROPHIL # 8.3 TH/MM3 (1.8-7.7); BASOPHIL # 0.1 TH/MM3 (0-0.2); BASOPHIL % 0.6 % (0.0-2.0); EOSINOPHIL # 0.3 TH/MM3 (0-0.4); EOSINOPHIL % 2.4 % (0.0-4.0); HEMATOCRIT 34.3 % (35.0-46.0); HEMOGLOBIN 11.7 GM/DL (11.6-15.3); LYMPH % 22.8 % (9.0-44.0); LYMPHOCYTE # 2.7 TH/MM3 (1.0-4.8); MEAN CELL VOLUME 92.8 FL (80.0-100.0); MEAN CORPUSCULAR HEMOGLOBIN 31.7 PG (27.0-34.0); MEAN CORPUSCULAR HGB CONC 34.1 % (32.0-36.0); MEAN PLATELET VOLUME 7.5 FL (7.0-11.0); MONO % 4.7 % (0.0-8.0); MONOCYTE # 0.6 TH/MM3 (0-0.9); NEUT % 69.5 % (16.0-70.0); PLATELET COUNT 267 TH/MM3 (150-450); RED CELL DISTRIBUTION WIDTH 13.6 % (11.6-17.2); WHITE BLOOD COUNT 11.9 TH/MM3 (4.0-11.0)
[2017-03-03] MEDS ORDERED: ceFAZolin 2 GM PREMIX 50 ML IV SCH (12:30)
[2017-03-03 12:43] LABS: BICARBONATE 24.8 MEQ/L (21.0-32.0); CALCIUM 8.9 MG/DL (8.5-10.1); CREATININE 0.59 MG/DL (0.50-1.00)
[2017-03-03] MEDS ORDERED: CITRIC ACID-SODIUM CITRATE LIQ 30 ML UDC PO SCH (13:00)
[2017-03-03] MEDS ORDERED: MIDAZOLAM HCL 2 MG/2 ML VIAL ONE (15:05)
[2017-03-03] MEDS ORDERED: BUPIVACAINE LIPOSOME PF 1.3% 20 ML VIAL ONE (15:22)
[2017-03-03] MEDS ORDERED: DOCUSATE SODIUM 50 MG/SENNA 8.6 MG TAB PO PRN (16:45)
[2017-03-03] MEDS ORDERED: SIMETHICONE 80 MG CHEWABLE TAB PO PRN (16:45)
[2017-03-03] MEDS ORDERED: ONDANSETRON HCL 4 MG/2 ML VIAL IV PUSH PRN (16:45)
[2017-03-03] MEDS ORDERED: SODIUM CHLORIDE 0.9% FLUSH 10 ML FLUSH IV FLUSH PRN (16:45)
[2017-03-03] MEDS ORDERED: oxyCODONE/ACETAMINOPHEN 5 MG/325 MG TAB PO PRN (16:45)
[2017-03-03] MEDS ORDERED: ZOLPIDEM TARTRATE 5 MG TAB PO PRN (16:45)
[2017-03-03] MEDS ORDERED: ACETAMINOPHEN 325 MG TAB PO PRN (16:45)
[2017-03-03] MEDS ORDERED: OXYTOCIN 30 UNITS-500ML PREMIX 500 ML IV ONE (16:45)
--- NOTE | 2017-03-03 17:05 | PD.OB.DELI ---
Procedure Note Section Procedure Pre Op Diagnosis: (1) 39 weeks gestation of (2) Previous section Post Op Diagnosis: (1) 39 weeks gestation of (2) Previous section Performed by Surgeon: Chandler Hernandez MD NATIONAL BUSINESS DIRECTOR: ZACK BLOUNT MD Procedure: Repeat Low Transverse Sec Indication for delivery: Desired elective repeat Previous condition: None Informed consent obtained: For anesthesia, For procedure Confirmed correct: Patient, Procedure, Time-out taken Anesthesia: Spinal Medication prior to procedure: As documented in eMAR Monitoring during procedure: Blood pressure monitoring, color television console monitor, Pulse oximetry Urinary catheter: Inserted using sterile technique Sterile preparation: With 2% chlorexidine (Hibiclens) Position: Supine with wedge to left side Operative Features Skin Incision: Transverse, Pfannenstiel Uterine Incision: Low transverse w/knife / blunt ext Membranes Ruptured: Artificially, Amount of liquid (copious), Appearance of fluid (clear) Presentation: Occiput anterior Delivery date: Mar 03, 2017 Delivery time: 14:42 Delivery of : Assisted Infant: Female One Minute : 8 Five Minute : 8 Weight: 3360g Status of infant: Viable, Umbilical cord Placenta delivered: Intact Medications: Oxytocin Estimated blood loss: 600cc Procedure tolerated: Well Maternal Condition: Stable Condition: Stable Procedure in detail Patient was brought into OR and positioned for spinal anesthesia. This was induced without any difficulty and patient was placed in dorsal lithotomy with a slight leftward tilt. She was cleansed and draped in standard sterile fashion and Cisneros inserted under sterile technique. Time out confirmed procedure, patient identity and prophylactic antitiotics. After confirming adequacy of anesthesia, incision was made with scalpel through her previous pfanensteil scar. Incision was taken through subcutaneous layer using Bovie down to level of rectus fascia which was scored in midline and extended bilaterally with curved Zaidi scissors. Rectus fascia was then elevated between Shira clamps and dissected off from the underlying rectus muscles. Rectus muscles were in midline and peritoneal incision identified. This was tented upwards with hemostats, entered sharply with [place],extended superiorly and inferiorly with careful visualization of the bladder Inspection of abdominal contents was then done and findings as above noted. Bladder blade was then inserted and vesico-uterine peritoneal reflection noted, tented with pickups entered sharply and extended laterally bluntly and bladder flap developed digitally. Fresh scalpel was then used to make an incision over the lower uterine segment, and amniotomy was done with copious clear fluid. Infant was delivered from the right occipito anterior position without nuchal cord and shoulders delivered without any difficulty. Delayed cord clamping was done and placenta /membranes then delivered spontaneously complete. Uterus was then exteriorized and placenta and membranes cleansed of all clots and debris. We then proceeded to close uterus in 3 layers , first of 0 Vicryl in continuous locking fashion for hemostasis and the second of the same suture to imbricate the first. After confirmed adequacy of hemostasis, the vesicouterine layer was reapproximated using 2.0 Vicryl. Gutters were cleared of all clots and debris and uterus returned to its intraperitoneal location. Interceed adhesion barrier was then placed over the incision, and then parietal peritoneum reapproximated with 2.0 Vicryl. The same suture was then used to reapproximate the edges of the rectus muscles in the midline. Rectus fascia was then closed with 1PDS after which subcutaneous tissues were irrigated with warm saline, and space closed with continuous 2.0 Vicryl. Finally skin closed in subcuticular fashion using 3.0 Monocryl. Pressure dressing was then applied. Patient tolerated procedure well and transferred stable to recovery. Chandler Hernandez MD Mar 03, 2017 17:05
[2017-03-03] MEDS: KETOROLAC TROMETHAMINE 60 MG/2 ML (IM) VIAL IM PRN (17:16)
[2017-03-03] MEDS ORDERED: MORPHINE SULFATE 4 MG/ML INJ ONE (18:10)
[2017-03-03 18:30] VITALS: BP 109/77; PULSE 83; RESP 15; TEMP 97.6
[2017-03-03] MEDS ORDERED: MORPHINE SULFATE 2 MG/ML INJ IV PUSH ONE (18:30)
[2017-03-03 19:50] VITALS: BP 124/78; PULSE 20; PULSE 87; RESP 20; TEMP 97.9; O2SAT 99
[2017-03-03] MEDS: oxyCODONE/ACETAMINOPHEN 5 MG/325 MG TAB PO PRN ×2 (19:51→23:01)
[2017-03-03] MEDS ORDERED: SODIUM CHLORIDE 0.9% FLUSH 10 ML FLUSH IV FLUSH SCH (21:00)
[2017-03-04] VITALS (8 sets, daily range): BP systolic 115–121; BP diastolic 72–82; PULSE 79–102; RESP 11–18; TEMP 97.6–98.1; O2SAT 99
[2017-03-04] MEDS: KETOROLAC TROMETHAMINE 60 MG/2 ML (IM) VIAL IM PRN ×2 (00:26→05:41)
[2017-03-04] MEDS ORDERED: OXYTOCIN 30 UNITS-500ML PREMIX 500 ML IV PRN (02:45)
[2017-03-04] MEDS: oxyCODONE/ACETAMINOPHEN 5 MG/325 MG TAB PO PRN ×3 (03:06→12:47)
[2017-03-04 05:58] LABS: AUTOMATED NEUTROPHIL # 9.3 TH/MM3 (1.8-7.7); BASOPHIL # 0.1 TH/MM3 (0-0.2); BASOPHIL % 0.5 % (0.0-2.0); EOSINOPHIL # 0.2 TH/MM3 (0-0.4); EOSINOPHIL % 1.1 % (0.0-4.0); HEMATOCRIT 33.9 % (35.0-46.0); HEMOGLOBIN 11.5 GM/DL (11.6-15.3); LYMPH % 23.8 % (9.0-44.0); LYMPHOCYTE # 3.1 TH/MM3 (1.0-4.8); MEAN CELL VOLUME 92.8 FL (80.0-100.0); MEAN CORPUSCULAR HEMOGLOBIN 31.5 PG (27.0-34.0); MEAN PLATELET VOLUME 7.2 FL (7.0-11.0); MONO % 3.5 % (0.0-8.0); MONOCYTE # 0.5 TH/MM3 (0-0.9); NEUT % 71.1 % (16.0-70.0); PLATELET COUNT 252 TH/MM3 (150-450); RED BLOOD COUNT 3.65 MIL/MM3 (4.00-5.30); RED CELL DISTRIBUTION WIDTH 13.9 % (11.6-17.2); WHITE BLOOD COUNT 13.1 TH/MM3 (4.0-11.0)
[2017-03-04] MEDS: clonazePAM 1 MG TAB PO PRN ×2 (08:09→20:39)
[2017-03-04] MEDS ORDERED: IBUPROFEN 800 MG TAB PO PRN (08:15)
[2017-03-04] MEDS ORDERED: KETOROLAC TROMETHAMINE 30 MG/ML (IVP) VIAL IV PUSH SCH (08:30)
--- NOTE | 2017-03-04 09:05 | HHI.OB ---
Subjective Post Operative Day: 1 Remarks Pt seen and examined this morning. Postoperative day # 1 AFVSS overnight. Incision not draining with compressive bandage in place, CDI. Patient endorses incisional pain. Decreased lochia. Denies dysuria. No breast tenderness. Baby will be placed for adoption. Appetite good. No nausea or vomiting. Patient has not yet had a bowel movement or endorse bowel gas. Ambulating well. Denies calf pain or shortness of breath. Otherwise, she is doing well this morning and has no other concerns. Objective Vitals/I&O Vital Signs Date Time Temp Pulse Resp B/P (MAP) Pulse Ox O2 Delivery O2 Flow Rate FiO2 03/04/17 08:00 97.6 79 15 116/75 (89) 03/04/17 00:20 97.8 84 17 115/77 (90) 99 03/03/17 19:50 87 03/03/17 19:50 97.9 03/03/17 19:50 20 20 124/78 (93) 99 03/03/17 18:30 97.6 83 15 109/77 (88) Result Diagram: 03/04/17 0541 03/03/17 1150 Objective Remarks GENERAL: Well-nourished, well-developed patient. CARDIOVASCULAR: Regular rate and rhythm without murmurs, gallops, or rubs. RESPIRATORY: Breath sounds equal bilaterally. No accessory muscle use. ABDOMEN/GI: Abdomen soft, non-tender, bowel sounds present. Incision: Clean, dry and intact. Compressive bandage in place, CDI. Fundus: Firm, non-tender at umbilicus. GENITOURINARY: Light to moderate bleeding. EXTREMITIES: No cyanosis or edema, non-tender, without signs of DVT. Medications and IVs Current Medications Medications (Trade) Dose Ordered Sig/Radha Route Start Time Stop Time Status Last Admin Lactated Ringer's 1,000 ml @ 150 mls/hr Q6H40M IV 03/03/17 11:54 Cefazolin Sodium/ Dextrose 50 ml @ 100 mls/hr PAYABLE MANAGER IV 03/03/17 12:30 03/07/17 12:29 03/03/17 13:36 (Bicitra Liq) 30 ml PAYABLE MANAGER PO 03/03/17 13:00 03/07/17 12:59 03/03/17 13:37 Lactated Ringer's 1,000 ml @ 100 mls/hr Q10H IV 03/03/17 21:40 03/04/17 17:39 03/04/17 00:26 Oxytocin 500 ml @ 100 mls/hr UNSCH X1 PRN IV 03/04/17 02:45 03/05/17 02:44 (NS Flush) 2 ml BID IV FLUSH 03/03/17 21:00 (NS Flush) 2 ml UNSCH PRN IV FLUSH 03/03/17 16:45 (Mylicon Chew) 80 mg QID PRN PO 03/03/17 16:45 (Tylenol) 650 mg Q6H PRN PO 03/03/17 16:45 (Percocet 5-325 Mg) 1 tab Q4H PRN PO 03/03/17 16:45 (Percocet 5-325 Mg) 2 tab Q4H PRN PO 03/03/17 16:45 03/04/17 07:21 (Charlene-Colace) 2 tab Q12H PRN PO 03/03/17 16:45 (Ambien) 5 mg HS PRN PO 03/03/17 16:45 (M-M-R Ii Inj) 0.5 ml ONCE ONCE SQ 03/04/17 16:00 03/04/17 16:01 (Boostrix Inj) 0.5 ml ONCE ONCE IM 03/04/17 16:00 03/04/17 16:01 (Zofran Inj) 4 mg Q6H PRN IV PUSH 03/03/17 16:45 (KlonoPIN) 2 mg TID PRN PO 03/04/17 09:00 03/04/17 08:09 (Habitrol 14 Mg Patch.24 Hr) 1 patch DAILY T-DERMAL 03/04/17 09:00 Miscellaneous Information 1 HS T-DERMAL 03/04/17 21:00 (Motrin) 800 mg Q8H PRN PO 03/04/17 08:15 (Buprenorphine) 8 mg TID SL 03/04/17 08:30 (Toradol Inj) 30 mg Q6HR IV PUSH 03/04/17 08:30 03/05/17 08:29 Assessment/Plan Problem List: (1) 39 weeks gestation of ICD Codes: Z3A.39 - 39 weeks gestation of (2) Previous section ICD Codes: Z98.891 - History of uterine scar from previous surgery (3) Status post repeat low transverse section ICD Codes: Z98.891 - History of uterine scar from previous surgery Assessment and Plan 36 y/o female who is postoperative # 1 s/p repeat . 1. PPD #1 from Repeat -Continue routine care. -Encouraged OOB. Advised pelvic rest for 6 wks. will need follow-up appointment in 1-2 weeks for incision check. -Re: ctrl, she would like contemplate her options. -Anticipate discharge 1-2 days pending clinical course. 2. Pain control -Patient on Suboxone 8 mg 3 times a day antepartum, continued. -Percocet and Motrin PRN pain. Encouraged stool softener to assist with BMs. -Toradol scheduled every 6 hours for the next 24 hours to assist with pain control. -Patient received nerve block to assist with pain. 3. Anxiety/Depression -Psychiatry consult placed per patient as she would like to discuss her depression and anxiety. dw Dr. Mary MD Discharge Planning In 1-2 days pending clinical course Mikie Feliz MD R2 Mar 04, 2017 09:04
[2017-03-04] MEDS: BUPRENORPHINE HCL 8 MG SUBLINGUAL TAB SL SCH ×4 (09:40→18:09)
[2017-03-04] MEDS: KETOROLAC TROMETHAMINE 30 MG/ML (IVP) VIAL IV PUSH SCH ×3 (09:45→22:32)
[2017-03-04] MEDS: NICOTINE 14 MG/24 HR PATCH T-DERMAL SCH (09:48)
[2017-03-04] MEDS ORDERED: MEASLES, MUMPS, RUBELLA VACCINE 0.5 ML VIAL SQ ONE (16:00)
[2017-03-04] MEDS ORDERED: DIPHTH/TETANUS/ACEL PERTUSSIS (BOOSTER) 0.5 ML VIAL/PFS IM ONE (16:00)
[2017-03-04] MEDS: HYDROcodone/IBUPROFEN 7.5MG/200MG TAB PO PRN ×2 (17:25→22:30)
[2017-03-04 17:29] LABS: HEPATITIS A AB IGM NEGATIVE (NEGATIVE); HEPATITIS B CORE AB IGM NEGATIVE (NEGATIVE); HEPATITIS B SURFACE ANTIGEN NEGATIVE (NEGATIVE); HEPATITIS C AB IgG NEGATIVE (NEGATIVE)
--- NOTE | 2017-03-04 17:36 | PD.PSY.CON ---
Provisional Diagnosis Admission Date Mar 03, 2017 at 10:24 [place]. Psychological and behavioral factors associated with disorders or diseases classified elsewhere.; opiate use disorder in buprenorphine maintenence History of Present Illness Service Psychiatry Consult Requested By Mikie Feliz MD Reason for Consult Pt. requesting consult. Primary Care Physician No Primary Care Physician HPI Patient is a 36-year-old woman, single, has one 7-year-old son who is living with her parents, one son, unemployed, on food stamps, the past psychiatric history of bipolar disorder as per patient, opiate use disorder on buprenorphine maintenance, remote history of ecstasy and cocaine use, 3 prior psychiatric hospitalizations (last time 10 years ago), once previous suicide attempt via overdose 10 years ago, no history of self-injurious behavior, currently with no outpatient mental health provider who recently gave to a child via which baby is going for adoption and psychiatry was consulted for evaluation is requested by the patient. Local Coordinator was notified by nursing staff the patient was on his leave AGAINST MEDICAL ADVICE complaining of not receiving adequate pain management. Patient was found lying in hospital bed speaking with adoption agency associate financial representative, was calm and cooperative interview today. Patient states that she is feeling "good" but reports feeling uncomfortable due to being in pain mostly. Patient reports having had decreased sleep recently due to the , mood has been "up and down" but denies feeling depressed, denies any suicidal ideations, reports adequate appetite but decreased energy and concentration, no feelings of guilt. Patient mentioned she was piercing on Lexapro 20 mg by mouth daily had been taking Lamictal 150 mg as needed which she felt that she was having manic like symptoms but was not taking it consistently. Patient mentioned that after her last delivery with her firstborn child she mentions having had some hypomanic like symptoms at that time was treated on mood stabilizers which resolved but was not ever hospitalized. Patient mentions she's had episodes of depression in the past which have resulted hospitalization 10 years ago but denies any episodes of crispin. Patient denies any previous psychotic symptoms in the past but has been on antipsychotics for mood stabilization. Currently patient reports feeling good, denies feeling depressed with suicide ideations, no manic or psychotic symptoms elicited, no perceptual disturbances or delusional material elicited. Patient at this time has no clinical signs of hypomania or crispin no concern for severe depression at this time. Patient mentions that she is giving up her baby for adoption is in a positive so which will be finalized tomorrow prior to her discharge. Patient states that she is giving of the baby for adoption because she feels is the right thing to do. She mentions that she has support by her boyfriend as well as her family back in [place]. Patient states that she plans on moving back to [place] after discharge with her boyfriend but is amenable to referral to outpatient psychiatry clinic for follow -up post discharge from the hospital. Patient mentioned she has a PCP in [place] as well. Patient at this time denies any SI, HI, AVH or delusions. Family history: Aunt with depression, bipolar. No suicides in a family Past psychiatric history: Previous psychiatric diagnoses of bipolar disorder, 3 previous psychiatric hospitalizations last time being 10 years ago, 1 remote suicide attempt 10 years ago via overdose, no history of self adjust behavior, no history of abuse. Substance use history: Patient reports tobacco use, denies any alcohol use, reports remote history of ecstasy and cocaine use in her 20s, history of opioid prescription abuse has been on Subutex for the past 8 years. Past medical history: Denies Allergies: NKDA Social history: Single, 2 children (7-year-old and a ), unemployed, domiciled with boyfriend, on food stamps, no legal history. Past Family Social History Coded Allergies: No Known Allergies (Verified Adverse Reaction, Unknown, 03/03/17) Reported Medications Vit-Iron Carbonyl ( Plus Iron 29-1 mg) 29 Mg Iron-1 Mg Tab, 1 TAB PO DAILY for Nutritional Supplement, #30 TAB 0 Refills 02/09/17 Amphetamine-Dextroamphetamine (Adderall) 20 Mg Tab, 20 MG PO DAILY for Hyperactivity Control, #30 TAB 0 Refills Avoid late evening doses. Space doses at least 4 to 6 hours if more than once/day dosing. 01/09/17 Clonazepam (Klonopin) 2 Mg Tab, 2 MG PO DAILY, #60 TAB 0 Refills 12/29/16 Buprenorphine (Buprenorphine) 8 Mg Subl, 8 MG SL TID, TAB.SL 11/28/16 Current Medications Medications (Trade) Dose Ordered Sig/Radha Route Start Time Stop Time Status Last Admin Lactated Ringer's 1,000 ml @ 150 mls/hr Q6H40M IV 1/12/18 11:54 Cefazolin Sodium/ Dextrose 50 ml @ 100 mls/hr COLD MILL OPERATOR IV 03/03/17 12:30 03/07/17 12:29 03/03/17 13:36 (Bicitra Liq) 30 ml COLD MILL OPERATOR PO 03/03/17 13:00 03/07/17 12:59 03/03/17 13:37 Lactated Ringer's 1,000 ml @ 100 mls/hr Q10H IV 03/03/17 21:40 03/04/17 17:39 03/04/17 00:26 Oxytocin 500 ml @ 100 mls/hr UNSCH X1 PRN IV 03/04/17 02:45 03/05/17 02:44 (NS Flush) 2 ml BID IV FLUSH 03/03/17 21:00 (NS Flush) 2 ml UNSCH PRN IV FLUSH 03/03/17 16:45 (Mylicon Chew) 80 mg QID PRN PO 03/03/17 16:45 (Tylenol) 650 mg Q6H PRN PO 03/03/17 16:45 (Charlene-Colace) 2 tab Q12H PRN PO 03/03/17 16:45 03/04/17 09:47 (Ambien) 5 mg HS PRN PO 03/03/17 16:45 (Zofran Inj) 4 mg Q6H PRN IV PUSH 03/03/17 16:45 (KlonoPIN) 2 mg TID PRN PO 03/04/17 09:00 03/04/17 08:09 (Habitrol 14 Mg Patch.24 Hr) 1 patch DAILY T-DERMAL 03/04/17 09:00 03/04/17 09:48 Miscellaneous Information 1 HS T-DERMAL 03/04/17 21:00 (Buprenorphine) 8 mg TID SL 03/04/17 08:30 03/04/17 12:43 (Toradol Inj) 30 mg Q6H IV PUSH 03/04/17 09:00 03/05/17 03:01 (Vicoprofen 7.5-200 Mg) 2 tab Q4HR PRN PO 03/04/17 16:30 Physical Exam Vital Signs Vital Signs Date Time Temp Pulse Resp B/P (MAP) Pulse Ox O2 Delivery O2 Flow Rate FiO2 03/04/17 14:27 121/82 (95) 03/04/17 14:26 97.6 03/04/17 14:26 86 11 03/04/17 00:20 99 Lab Results Test 03/04/17 05:41 White Blood Count 13.1 TH/MM3 Red Blood Count 3.65 MIL/MM3 Hemoglobin 11.5 GM/DL Hematocrit 33.9 % Mean Corpuscular Volume 92.8 FL Mean Corpuscular Hemoglobin 31.5 PG Mean Corpuscular Hemoglobin Concent 34.0 % Red Cell Distribution Width 13.9 % Platelet Count 252 TH/MM3 Mean Platelet Volume 7.2 FL Neutrophils (%) (Auto) 71.1 % Lymphocytes (%) (Auto) 23.8 % Monocytes (%) (Auto) 3.5 % Eosinophils (%) (Auto) 1.1 % Basophils (%) (Auto) 0.5 % Neutrophils # (Auto) 9.3 TH/MM3 Lymphocytes # (Auto) 3.1 TH/MM3 Monocytes # (Auto) 0.5 TH/MM3 Eosinophils # (Auto) 0.2 TH/MM3 Basophils # (Auto) 0.1 TH/MM3 CBC Comment DIFF FINAL Differential Comment Mental Status Examination Appearance: Appropriate Consciousness: Alert Orientation: Person, Place, Date/Time Speech: Unremarkable Language: Adequate Fund of Knowledge: Inadequate Attention and Concentration: Adequate Memory: Unremarkable Mood: Good Affect: Appropriate Thought Process & Associations: Intact, Goal directed, Linear Thought Content: Appropriate Hallucination Type: None Delusion Type: None Suicidal Ideation: No Suicidal Plan: No Suicidal Intention: No Homicidal Ideation: No Homicidal Plan: No Homicidal Intention: No Insight: Adequate Judgment: Adequate Assessment & Plan Problem List: (1) Psychological and behavioral factors associated with disorders or diseases classified elsewhere ICD Codes: F54 - Psychological and behavioral factors associated with disorders or diseases classified elsewhere Assessment & Plan Francine 36 0 woman with a self reported diagnosis of bipolar disorder, polysubstance use disorder currently on given orphan maintenance, remote psychiatric hospitalizations and 1 remote suicide attempt recently delivered via and is now day one with plans of giving up her baby for adoption which psychiatry was consulted for evaluation is requested by the patient. Patient this time has no clinical signs of depression, crispin or psychosis. Patient with a history of bipolar disorder previously on medication management but has not had any pharmacological intervention since her . Patient also has opiate use disorder on buprenorphine maintenance which she currently follows with her physician in [facility]. I would not recommend starting any psychotropic medications at this time as patient currently psychiatrically stable but will benefit from referral to outpatient psychiatry clinic or provider to follow up for continuity of care and to assess restarting of mood stabilizers. Patient management as per primary medical team. Consult appreciated Malick Sandoval MD Mar 04, 2017 17:36
[2017-03-04] MEDS ORDERED: BUPRENORPHINE HCL 8 MG SUBLINGUAL TAB SL SCH (18:30)
[2017-03-04] MEDS: REMOVE OLD PATCH T-DERMAL SCH (21:00)
[2017-03-05] VITALS (10 sets, daily range): BP systolic 106–135; BP diastolic 68–78; PULSE 18–103; RESP 14–18; TEMP 97.8–98.7; O2SAT 97–98
[2017-03-05] MEDS: KETOROLAC TROMETHAMINE 30 MG/ML (IVP) VIAL IV PUSH SCH (03:00)
[2017-03-05] MEDS: HYDROcodone/IBUPROFEN 7.5MG/200MG TAB PO PRN ×2 (03:17→08:16)
--- NOTE | 2017-03-05 08:42 | HHI.OB ---
Subjective Post Operative Day: 2 Remarks Pt seen and examined this morning. Postoperative day #2. AFVSS overnight. Incision not draining, clean dry and intact. Patient endorses incisional pain. Decreased lochia. Denies dysuria. No breast tenderness. Baby will be placed for adoption. Appetite good. No nausea or vomiting. Patient has not yet had a bowel movement or endorse bowel gas. Ambulating well. Denies calf pain or shortness of breath. Otherwise, she is doing well this morning and has no other concerns. Objective Vitals/I&O Vital Signs Date Time Temp Pulse Resp B/P (MAP) Pulse Ox O2 Delivery O2 Flow Rate FiO2 03/05/17 07:15 97.8 76 16 106/68 (81) 03/04/17 22:38 119/72 (88) 03/04/17 22:38 98.1 102 18 03/04/17 14:27 121/82 (95) 03/04/17 14:26 97.6 03/04/17 14:26 86 11 03/04/17 14:00 14 03/04/17 11:59 121/75 (90) 03/04/17 11:59 98.0 88 13 03/04/17 11:00 98.0 Result Diagram: 03/04/17 0541 03/03/17 1150 Objective Remarks GENERAL: Well-nourished, well-developed patient. CARDIOVASCULAR: Regular rate and rhythm without murmurs, gallops, or rubs. RESPIRATORY: Breath sounds equal bilaterally. No accessory muscle use. ABDOMEN/GI: Abdomen soft, non-tender, bowel sounds present. Incision: Clean, dry and intact. No shruthi in place. Fundus: Firm, non-tender at umbilicus. GENITOURINARY: Light to moderate bleeding. EXTREMITIES: No cyanosis or edema, non-tender, without signs of DVT. Medications and IVs Current Medications Medications (Trade) Dose Ordered Sig/Radha Route Start Time Stop Time Status Last Admin Lactated Ringer's 1,000 ml @ 150 mls/hr Q6H40M IV 03/03/17 11:54 Cefazolin Sodium/ Dextrose 50 ml @ 100 mls/hr JACKSCREW WORKER IV 03/03/17 12:30 03/07/17 12:29 03/03/17 13:36 (Bicitra Liq) 30 ml JACKSCREW WORKER PO 03/03/17 13:00 03/07/17 12:59 03/03/17 13:37 (NS Flush) 2 ml BID IV FLUSH 03/03/17 21:00 (NS Flush) 2 ml UNSCH PRN IV FLUSH 03/03/17 16:45 (Mylicon Chew) 80 mg QID PRN PO 03/03/17 16:45 (Tylenol) 650 mg Q6H PRN PO 03/03/17 16:45 (Charlene-Colace) 2 tab Q12H PRN PO 03/03/17 16:45 03/04/17 09:47 (Ambien) 5 mg HS PRN PO 03/03/17 16:45 (Zofran Inj) 4 mg Q6H PRN IV PUSH 03/03/17 16:45 (KlonoPIN) 2 mg TID PRN PO 03/04/17 09:00 03/04/17 20:39 (Habitrol 14 Mg Patch.24 Hr) 1 patch DAILY T-DERMAL 03/04/17 09:00 03/04/17 09:48 Miscellaneous Information 1 HS T-DERMAL 03/04/17 21:00 03/04/17 21:00 (Buprenorphine) 8 mg TID SL 03/04/17 08:30 03/04/17 18:09 (Vicoprofen 7.5-200 Mg) 2 tab Q4HR PRN PO 03/04/17 16:30 03/05/17 08:16 Assessment/Plan Problem List: (1) 39 weeks gestation of ICD Codes: Z3A.39 - 39 weeks gestation of (2) Previous section ICD Codes: Z98.891 - History of uterine scar from previous surgery (3) Status post repeat low transverse section ICD Codes: Z98.891 - History of uterine scar from previous surgery Assessment and Plan 36 y/o female who is postoperative # 2 s/p repeat . 1. POD #2 from Repeat -Continue routine care. -Encouraged OOB. Advised pelvic rest for 6 wks. will need follow-up appointment in 1-2 weeks for incision check. -Re: ctrl, she would like contemplate her options. -Anticipate discharge tomorrow pending clinical course. 2. Pain control -Patient on Suboxone 8 mg 3 times a day antepartum, continued. -Was getting Vicoprofen, patient requesting switching back to Percocet 7.5 q4hr PRN now. Toradol PO 10mg q6hr to be added to regimen. Encouraged stool softener to assist with BMs. -Toradol scheduled every 6 hours for the next 24 hours to assist with pain control. -Patient received nerve block to assist with pain. 3. Anxiety/Depression -Psychiatry consult placed: no acute concerns noted, appreciate recs. sdw MD Raymundo Greenwood Kara Leverette MD Mar 05, 2017 08:42
[2017-03-05] MEDS ORDERED: KETOROLAC TROMETHAMINE 10 MG TAB PO SCH (08:45)
[2017-03-05] MEDS: DOCUSATE SODIUM 50 MG/SENNA 8.6 MG TAB PO SCH ×2 (09:56→21:50)
[2017-03-05] MEDS: BUPRENORPHINE HCL 8 MG SUBLINGUAL TAB SL SCH ×3 (09:58→19:02)
[2017-03-05] MEDS: NICOTINE 14 MG/24 HR PATCH T-DERMAL SCH (09:59)
[2017-03-05] MEDS ORDERED: oxyCODONE/ACETAMINOPHEN 7.5 MG/325 MG TAB PO PRN (12:15)
[2017-03-05] MEDS ORDERED: oxyCODONE/ACETAMINOPHEN 5 MG/325 MG TAB PO PRN ×3 (13:00→13:15)
[2017-03-05] MEDS: KETOROLAC TROMETHAMINE 10 MG TAB PO SCH ×2 (14:58→20:12)
[2017-03-05] MEDS: oxyCODONE/ACETAMINOPHEN 5 MG/325 MG TAB PO PRN ×2 (17:17→21:51)
[2017-03-05] MEDS: REMOVE OLD PATCH T-DERMAL SCH (21:00)
[2017-03-05] MEDS: clonazePAM 1 MG TAB PO PRN (21:51)
[2017-03-06] MEDS: KETOROLAC TROMETHAMINE 10 MG TAB PO SCH ×2 (02:12→08:57)
[2017-03-06] MEDS: oxyCODONE/ACETAMINOPHEN 5 MG/325 MG TAB PO PRN ×3 (02:12→11:33)
[2017-03-06] MEDS ORDERED: KETO10 PO (07:22)
[2017-03-06] MEDS ORDERED: OXYC1TAB63 PO (07:22)
[2017-03-06] MEDS ORDERED: Simethicone Chew PO (07:23)
[2017-03-06] MEDS ORDERED: PERI PO (07:23)
--- NOTE | 2017-03-06 07:23 | HHI.DCPOC ---
Discharge Care Plan Diagnosis: (1) Previous section (2) Status post repeat low transverse section Report Symptoms to Your Doctor -Temperature above 100.5 degrees -Redness, of incision or excessive or foul smelling drainage -Unusual pain or calf pain -Increased vaginal bleeding -Painful or difficulty urinating -Feelings of extreme sadness or anxiety after 2 weeks Goals to Promote Your Health * To prevent worsening of your condition and complications * To maintain your health at the optimal level Directions to Meet Your Goals Take your medications as prescribed Follow your dietary instruction Follow activity as directed Ensure plenty of rest for recovery Drink fluids for hydration Keep your appointments as scheduled Take your immunizations and boosters as scheduled If your symptoms worsen call your PCP, if no PCP go to Urgent Care Center or Emergency Room Smoking is Dangerous to Your Health. Avoid second hand smoke Call the 24-hour crisis hotline for domestic abuse at Alix Fonseca MD Mar 06, 2017 07:23
--- NOTE | 2017-03-06 07:27 | HHI.OB ---
Subjective Post Operative Day: 3 Remarks Pt seen and examined this morning. Postoperative day #3. AFVSS overnight. Incision not draining, clean dry and intact. Patient endorses incisional pain. Decreased lochia. Denies dysuria. No breast tenderness. Has had bowel movement. Baby will be placed for adoption. Appetite good. No nausea or vomiting. Ambulating well. Denies calf pain or shortness of breath. Otherwise, she is doing well this morning and has no other concerns. Objective Vitals/I&O Vital Signs Date Time Temp Pulse Resp B/P (MAP) Pulse Ox O2 Delivery O2 Flow Rate FiO2 03/05/17 19:35 90 03/05/17 19:34 18 18 135/76 (95) 03/05/17 19:34 98.1 03/05/17 17:16 16 03/05/17 17:14 98 03/05/17 17:14 97 113/77 (89) 03/05/17 14:57 98.7 102 123/74 (90) 03/05/17 14:54 16 03/05/17 14:07 97 03/05/17 14:04 18 03/05/17 12:27 14 03/05/17 12:27 103 122/78 (93) Result Diagram: 03/04/17 0541 03/03/17 1150 Objective Remarks GENERAL: Well-nourished, well-developed patient. CARDIOVASCULAR: Regular rate and rhythm without murmurs, gallops, or rubs. RESPIRATORY: Breath sounds equal bilaterally. No accessory muscle use. ABDOMEN/GI: Abdomen soft, non-tender, bowel sounds present. Incision: Clean, dry and intact. No shruthi in place. Fundus: Firm, non-tender at umbilicus. GENITOURINARY: Light to moderate bleeding. EXTREMITIES: No cyanosis or edema, non-tender, without signs of DVT. Medications and IVs Current Medications Medications (Trade) Dose Ordered Sig/Radha Route Start Time Stop Time Status Last Admin Lactated Ringer's 1,000 ml @ 150 mls/hr Q6H40M IV 03/03/17 11:54 Cefazolin Sodium/ Dextrose 50 ml @ 100 mls/hr INSTRUCTIONAL LEADER IV 03/03/17 12:30 03/07/17 12:29 03/03/17 13:36 (Bicitra Liq) 30 ml INSTRUCTIONAL LEADER PO 03/03/17 13:00 03/07/17 12:59 03/03/17 13:37 (NS Flush) 2 ml BID IV FLUSH 03/03/17 21:00 (NS Flush) 2 ml UNSCH PRN IV FLUSH 03/03/17 16:45 (Mylicon Chew) 80 mg QID PRN PO 03/03/17 16:45 03/05/17 22:05 (Tylenol) 650 mg Q6H PRN PO 03/03/17 16:45 (Charlene-Colace) 2 tab Q12H PRN PO 03/03/17 16:45 03/04/17 09:47 (Ambien) 5 mg HS PRN PO 03/03/17 16:45 (Zofran Inj) 4 mg Q6H PRN IV PUSH 03/03/17 16:45 (KlonoPIN) 2 mg TID PRN PO 03/04/17 09:00 03/05/17 21:51 (Habitrol 14 Mg Patch.24 Hr) 1 patch DAILY T-DERMAL 03/04/17 09:00 03/05/17 09:59 Miscellaneous Information 1 HS T-DERMAL 03/04/17 21:00 03/04/17 21:00 (Buprenorphine) 8 mg TID SL 03/04/17 08:30 03/05/17 19:02 (Charlene-Colace) 1 tab BID PO 03/05/17 09:00 03/05/17 21:50 (Toradol) 10 mg Q6H PO 03/05/17 14:00 03/06/17 18:00 03/06/17 02:12 (Percocet 5-325 Mg) 2 tab Q4H PRN PO 03/05/17 13:00 03/06/17 06:19 (Percocet 5-325 Mg) 1 tab Q4H PRN PO 03/05/17 13:15 Assessment/Plan Problem List: (1) 39 weeks gestation of ICD Codes: Z3A.39 - 39 weeks gestation of (2) Previous section ICD Codes: Z98.891 - History of uterine scar from previous surgery (3) Status post repeat low transverse section ICD Codes: Z98.891 - History of uterine scar from previous surgery Assessment and Plan 36 y/o female who is postoperative # 3 s/p repeat . 1. POD #2 from Repeat -Continue routine care. -Encouraged OOB. Advised pelvic rest for 6 wks. will need follow-up appointment in 1-2 weeks for incision check. -Re: ctrl, she would like contemplate her options. -Anticipate discharge today. 2. Pain control -Patient on Suboxone 8 mg 3 times a day antepartum, continued as inpt. Patient to continue as outpt from prior provider. -Was getting Vicoprofen, patient requesting switching back to Percocet 7.5 q4hr PRN. Will give 15 Percocet at 7.5mg dose to go home with. Will give 12 Toradol to complete 5 day course of this antiinflammatory. Encouraged stool softener to assist with BMs, prescribed.. -Patient received nerve block to assist with pain. 3. Anxiety/Depression -Psychiatry consult placed: no acute concerns noted, appreciate recs. giuliaw MD Raymundo Layne Kara Leverette MD Mar 06, 2017 07:27
[2017-03-06] MEDS ORDERED: PERC7.5T13 PO (07:28)
[2017-03-06 08:00] VITALS: BP 120/73; PULSE 76; RESP 16; TEMP 97.7
[2017-03-06] MEDS: DOCUSATE SODIUM 50 MG/SENNA 8.6 MG TAB PO SCH (08:57)
[2017-03-06] MEDS: BUPRENORPHINE HCL 8 MG SUBLINGUAL TAB SL SCH (11:32)
[2017-03-06] MEDS: clonazePAM 1 MG TAB PO PRN (11:33)
== END 2017-03-06 12:07 | disposition home or self-care (01) | DRG 765 ==
LOC: H2EB 10:24 → H1EA 18:26
PROVIDERS: ADMIT Obstetrics & Gynecology; ATTEND Obstetrics & Gynecology
PROC: 10D00Z1 Extraction of Products of Conception, Low, Open Approach (ICD-10-PCS; principal; 2017-03-03)
PROC: 3E0P05Z Introduction of Adhesion Barrier into Female Reproductive, Open Approach (ICD-10-PCS; 2017-03-03)
DX: O34.211 Maternal care for low transverse scar from previous cesarean delivery (principal); F11.20 Opioid dependence, uncomplicated; O99.324 Drug use complicating childbirth; Z37.0 Single live birth; O99.334 Smoking (tobacco) complicating childbirth; F17.210 Nicotine dependence, cigarettes, uncomplicated; Z3A.39 39 weeks gestation of pregnancy; F41.9 Anxiety disorder, unspecified; O99.344 Other mental disorders complicating childbirth; F54 Psychological and behavioral factors associated with disorders or diseases classified elsewhere
CPT/HCPCS: 59025; 80048; 80074; 80307; 81001; 85025; 86592; 86703; 86762; 86850; 86900; 86901; 96372; C1765; C9290; G0481; J0131; J0690; J1885; J2175; J2250; J2270; J2274; J2405; J2550; J2590; J7120